=== PATIENT | female | born 1960 | race African-American/Black ===

== ENCOUNTER 2018-11-04 13:30 | Outpatient (RCR) | payer MEDICARE, OTHER ==
[~2018-11-04 13:30] MED LIST: ASPIRIN 32325 MG/TAB PO; INDERAL80 MG PO; NOLVADEX 1010 MG/TAB PO; PAMELOR 25MG25 MG PO; ZANTAC 150MG T150 MG PO; ZOCOR 20MG20 MG PO
== END 2018-11-27 | disposition home or self-care (01) ==
LOC: WSPT
DX: G89.4 Chronic pain syndrome (principal)

== ENCOUNTER 2022-02-28 10:30 | Outpatient (RCR) | payer OTHER, MEDICARE | END 2022-03-01 | disposition home or self-care (01) | LOC: WSPT | DX: M79.7 Fibromyalgia (principal) ==

== ENCOUNTER 2022-03-02 08:26 | Outpatient (RCR) | payer OTHER, MEDICARE | END 2022-04-01 | disposition home or self-care (01) | LOC: WSPT | DX: M79.7 Fibromyalgia (principal) ==

== ENCOUNTER 2022-05-01 14:17 | Outpatient (RCR) | payer OTHER, MEDICARE | END 2022-05-02 | disposition home or self-care (01) | LOC: WSPT | DX: M79.7 Fibromyalgia (principal) ==

== ENCOUNTER 2022-09-24 12:55 | Outpatient (RCR) | payer OTHER, MEDICARE | END 2022-10-02 | disposition home or self-care (01) | LOC: WSST | DX: G31.84 Mild cognitive impairment of uncertain or unknown etiology (principal) ==

== ENCOUNTER 2022-10-22 13:00 | Outpatient (RCR) | payer OTHER, MEDICARE | END 2022-10-30 | disposition home or self-care (01) | LOC: WSST | DX: I69.311 Memory deficit following cerebral infarction (principal) ==

== ENCOUNTER 2022-11-26 13:00 | Outpatient (RCR) | payer OTHER, MEDICARE | END 2022-11-30 | disposition home or self-care (01) | LOC: WSST | DX: I69.318 Other symptoms and signs involving cognitive functions following cerebral infarction (principal) ==

== ENCOUNTER 2022-12-19 13:45 | Outpatient (RCR) | payer OTHER, MEDICARE | END 2022-12-30 | disposition home or self-care (01) | LOC: WSST | DX: I69.318 Other symptoms and signs involving cognitive functions following cerebral infarction (principal) ==

== ENCOUNTER 2022-12-25 12:45 | Outpatient (RCR) | payer OTHER, MEDICARE | END 2022-12-27 10:45 | disposition home or self-care (01) | LOC: WSC 12:45 | DX: M79.7 Fibromyalgia (principal) ==

== ENCOUNTER → 2023-01-30 | Outpatient (RCR) | payer OTHER, MEDICARE | END | disposition home or self-care (01) | LOC: WSST | DX: I69.318 Other symptoms and signs involving cognitive functions following cerebral infarction (principal); I69.398 Other sequelae of cerebral infarction ==